=== PATIENT | male | born 1985 | race Caucasian/White ===

== ENCOUNTER 2019-07-27 14:42 | Emergency (ER) | payer MEDICAID, OTHER ==
[~2019-07-27] VITALS: Ht 180.3 cm; Wt 108.9 kg
[~2019-07-27 14:42] MED LIST: AMPH20CA7 PO; DULO30CA2 PO
[2019-07-27 14:57] VITALS: BP 146/102
--- NOTE | 2019-07-27 16:05 | PCM.EKG ---
[facility] Test Date: 2019-07-27 Test Time: 16:01:06 Pat Name: OJ LEVINE Department: Room: Gender: M Behavior Specialist: KARLOS : 1985 Requested By: AYUSH THURMAN Order Number: [id number] Reading MD: Measurements Intervals [place] Rate: 90 P: 67 MI: 147 QRS: 88 QRSD: 117 T: 37 QT: 369 QTc: 452 Interpretive Statements Sinus rhythm Nonspecific intraventricular conduction delay Abnormal inferior Q waves No previous ECG available for comparison Please click the below link to view image of tracing.
[2019-07-27 16:07] LABS: BASOPHIL % 0.4 % (0.0-0.2); EOSINOPHIL # 0.3 10^3/uL (0.0-0.2); LYMPHOCYTES # 1.1 10^3/uL (1.0-4.8); LYMPHOCYTES % 20.8 % (24.0-44.0); MEAN CORP HGB 32.4 pg (26-34); MONOCYTES # 0.5 10^3/uL (0.3-0.8); NEUTROPHIL # 3.4 10^3/uL (1.8-7.7); NEUTROPHILS % 63.2 % (41.0-85.0); RED CELL DISTRIBUTION WIDTH 13.1 % (11.5-14.5)
[2019-07-27 16:28] LABS: ALANINE AMINOTRANSFERASE(ML) 135 U/L (12-78); ALKALINE PHOSPHATASE 64 U/L (50-136); ASPARTATE AMINO TRANSFERASE 60 U/L (0-35); CALCIUM 9.2 mg/dL (8.4-10.5); CARBON DIOXIDE 24.9 mmol/L (20.0-32); GLUCOSE 119 mg/dL (70-110)
[2019-07-27 16:30] VITALS: BP 158/97
[2019-07-27 17:00] VITALS: BP 134/94
[2019-07-27 17:07] LABS: BILIRUBIN,URINE NEGATIVE (NEGATIVE); UROBILINOGEN,URINE NORMAL (NEGATIVE)
[2019-07-27 17:09] LABS: APPEARANCE,URINE CLEAR (CLEAR); UA COLOR YELLOW (YELLOW)
--- NOTE | 2019-07-27 17:18 | DIREP ---
PROCEDURE:CT CERVICAL SPINE WITHOUT CONTRAST TECHNIQUE:Axial cuts were obtained through the cervical spine. The images were viewed at bone and soft tissue settings. Sagittal and coronal reconstructions are provided. COMPARISON:None. INDICATIONS:fall from 20 feet, LLE WEAKNESS, NUMBNESS L1,2 TENDERNESS, SACRAL TENDERNES FINDINGS: ALIGNMENT:Normal. VERTEBRAE:Normal. PARASPINAL AREA:Normal. OTHER:No additional findings. CERVICAL DISC LEVELS Minimal C4-5 ventral spondylosis. CONCLUSION: 1. No acute findings Dictated by: Christopher Umaña MD on 07/27/2019 at 05:06 PM
--- NOTE | 2019-07-27 17:27 | DIREP ---
PROCEDURE:CT CHEST ABDOMEN PELVIS W/CONTRAST COMPARISON:None. INDICATIONS:FALL FROM 20 FEET, LLE WEAKNESS TECHNIQUE:Axial images were obtained through the chest, abdomen and pelvis during the IV administration of nonionic contrast. No oral contrast was administered. Sagittal and coronal reconstructions were performed from source images. FINDINGS: LUNGS:Normal. No visible pulmonary disease. PLEURA:Normal. No mass or effusion. CARDIAC:Normal. No enlargement, pericardial thickening, or significant calcification. MEDIASTINUM/ELIZA:Calcified left suprahilar lymph nodes CHEST WALL:Normal. No mass or axillary adenopathy. LIVER:Diffusely diminished hepatic attenuation consistent with hepatic steatosis. There is focal fatty sparing adjacent to the gallbladder. BILIARY:Normal. No visible dilatation or calcification. PANCREAS:Normal. No lesion, fluid collection, ductal dilatation, or atrophy. SPLEEN:Normal. No enlargement or focal lesion. ADRENALS:Normal. No mass or enlargement. URINARY TRACT:Normal. No focal lesions or hydronephrosis. AORTA/VASCULAR:Normal. No aneurysm. RETROPERITONEUM:Normal. No mass or adenopathy. BOWEL/MESENTERY:Normal. There is no intestinal obstruction, free fluid, free air or mesenteric inflammatory changes. ABDOMINAL WALL:Normal. No mass or hernia. PELVIC ORGANS:Normal. No visible mass. Pelvic organs appropriate for patient age. BONES:Normal for age. No bony lesion or acute fracture. No visible spinal or pelvic deformities. OTHER:Negative. CONCLUSION: 1. Moderately severe hepatic steatosis. 2. Calcified left suprahilar lymph nodes consistent with the sequela of prior granulomatous disease. 3. No evidence for traumatic injury to the chest, abdomen, or pelvis. Dictated by: Christopher Umaña MD on 07/27/2019 at 05:21 PM
--- NOTE | 2019-07-27 17:40 | ER.PDOC ---
General Chief Complaint: Trauma Stated Complaint: FELL OFF LADDER Time seen by MD: 16:00 Source: patient Exam Limitations: no limitations History of Present Illness Where: home Severity: moderate Injuries/Pain Location: back Context: Lost Balance Loss of Consciousness: No Loss of Consciousness Allergies: Coded Allergies: No Known Allergies (Unverified , 12/23/14) MEDS Reported Medications Duloxetine Hcl (CYMBALTA) 30 Mg Capsule.dr, 1 CAP PO DAILY, #30 CAP 2 Refills 08/01/15 Amphet Asp/Amphet/D-Amphet (ADDERALL XR 20 MG CAPSULE) 20 Mg Cap.er.24h, 1 CAP PO DAILY, #30 CAP 08/01/15 Past Medical History Medical History: high cholesterol Surgical History: no surgical history Social History Alcohol Use: occassionally Drug Use: none Review of Systems All Other Systems: Reviewed and Negative Physical Exam General Appearance: No Apparent Distress, WD/WN Head: No Evidence of Injury Eyes: bilateral eye normal inspection Ears, Nose, Mouth, Throat: Hearing Grossly Normal, No Evidence of ENT Injury, No Dental Injury Neck: Non-Tender, Normal Alignment, Nexus criteria neg, Normal Inspection Cardiovascular/Respiratory: Regular Rate, Rhythm, No M/R/G, Normal Peripheral Pulses, No JVD, Normal Breath Sounds, No Respiratory Distress Back: Muscle Spasm Extremities: Other (weak lle, below knee) Nav Coma Score [place] Total: 15 Results/Orders Results/Orders Orders - AYUSH THURMAN MD Cbc With Auto Diff (07/27/19 15:54) Comprehensive Metabolic Panel (07/27/19 15:54) Creatine Kinase (07/27/19 15:54) PT (07/27/19 15:54) Partial Thromboplastin Time. (07/27/19 15:54) Urinalysis (07/27/19 15:54) Troponin I (07/27/19 15:54) Ekg-Routine (07/27/19 15:54) Ct Cervical Spine (07/27/19 15:54) Ct Abd/Pel With Iv Contrast (07/27/19 15:54) Ct Chest W Iv Contrast (07/27/19 15:54) Drug Screen Medical(Ml) (07/27/19 15:54) Alcohol(Ml) (07/27/19 15:54) Saline Lock (07/27/19 15:54) Opiate Confirmation Ur (07/27/19 17:00) Vital Signs Date Time Temp Pulse Resp B/P (MAP) Pulse Ox O2 Delivery O2 Flow Rate FiO2 07/27/19 17:00 100 18 134/94 (107) 07/27/19 16:30 99 18 158/97 (117) 99 07/27/19 15:07 18 07/27/19 14:57 98.4 104 18 146/102 (117) 99 Room Air 07/27/19 14:57 98.4 104 18 99 07/27/19 14:57 98.4 104 18 Laboratory Tests Test 07/27/19 16:03 07/27/19 17:00 White Blood Count 5.4 10^3/uL (4.5-11.0) Red Blood Count 4.94 10^6/uL (4.50-5.90) Hemoglobin 16.0 g/dL (13.9-16.3) Hematocrit 44.8 % (37.0-53.0) Mean Corpuscular Volume 90.7 fL (78-100) Mean Corpuscular Hemoglobin 32.4 pg (26-34) Mean Corpuscular Hemoglobin Concent 35.7 g/dL (33-37) Red Cell Distribution Width 13.1 % (11.5-14.5) Platelet Count 170 10^3/uL (150-400) Mean Platelet Volume 10.4 fL (7.8-11.0) Neutrophils (%) (Auto) 63.2 % (41.0-85.0) Lymphocytes (%) (Auto) 20.8 % (24.0-44.0) L Monocytes (%) (Auto) 10.0 % (5.0-12.0) Neutrophils # (Auto) 3.4 10^3/uL (1.8-7.7) Lymphocytes # (Auto) 1.1 10^3/uL (1.0-4.8) Monocytes # (Auto) 0.5 10^3/uL (0.3-0.8) Absolute Immature Granulocyte (auto 0.03 10^3 u/L (0-2) Immature Granulocytes % 0.60 % (0.00-0.50) H Eosinophils % 5.0 % (0.0-5.0) Basophils % 0.4 % (0.0-0.2) H Basophils # 0.0 10^3/uL (0.0-0.1) Eosinophil Count 0.3 10^3/uL (0.0-0.2) H Prothrombin Time 10.6 SEC (9.4-11.5) Prothrombin Time INR (Non-Therap) 1.0 Activated Partial Thromboplast Time 24.8 SEC (24.67-30.72) Sodium Level 140 mmol/L (132-145) Potassium Level 3.4 mmol/L (3.6-5.2) L Chloride Level 103.0 mmol/L (96-109) Carbon Dioxide Level 24.9 mmol/L (20.0-32) Anion Gap 15.5 Blood Urea Nitrogen 14 mg/dL (7-18) Creatinine 1.19 mg/dL (0.59-1.40) Estimated GFR () 85.2 (>/=60) BUN/Creatinine Ratio 11.0 Glucose Level 119 mg/dL (70-110) H Calcium Level 9.2 mg/dL (8.4-10.5) Total Bilirubin 0.8 mg/dL (0.2-1.0) Aspartate Amino Transferase (AST) 60 U/L (0-35) H Alanine Aminotransferase (ALT) 135 U/L (12-78) H Alkaline Phosphatase 64 U/L (50-136) Total Creatine Kinase 86 U/L (39-308) Troponin I < 0.02 ng/mL (0.00-0.05) Total Protein 7.8 g/dL (6.4-8.2) Albumin 4.2 g/dL (3.4-5.0) Globulin 3.6 Serum Alcohol < 3 mg/dL (0-50) Urine Collection Type VOID Urine Color YELLOW (YELLOW) Urine Appearance CLEAR (CLEAR) Urine Bilirubin NEGATIVE MG/DL (NEGATIVE) Urine Ketones NEGATIVE (NEGATIVE) Urine Specific [place] 1.020 (1.005-1.035) Urine pH 5 (5.0-6.0) Urine Protein NEGATIVE (NEGATIVE) Urine Urobilinogen NORMAL (NEGATIVE) Urine Nitrate NEGATIVE (NEGATAIVE) Urine Leukocyte Esterase NEGATIVE (NEGATIVE) Urine Blood NEGATIVE (NEGATIVE) Urine Glucose NORMAL (NEGATIVE) Urine Opiates, Qualitative POSITIVE ng/mL (CUT-OFF:300) Urine Methadone, Qualitative NEGATIVE ng/mL (CUT-OFF:300) Urine Amphetamine Qualitative NEGATIVE ng/mL (CUTOFF:1000) Urine Barbiturates, Qualitative NEGATIVE ng/mL (CUT-OFF:200) Urine Phencyclidine Screen NEGATIVE ng/mL (CUT-OFF:25) Urine MDMA (Ecstasy), Qualitative POSITIVE ng/mL (CUT-OFF:300) Urine Benzodiazepines Screen NEGATIVE ng/mL (CUT-OFF:200) Urine Cocaine Qualitative NEGATIVE ng/mL (CUT-OFF:300) Ur Tetrahydrocannabinol (THC) Scrn NEGATIVE ng/mL (CUT-OFF:50) Departure Time of Disposition: 18:00 Disposition: 05 DISCH/XFER OTHER Impression: Primary Impression: Lumbar radiculopathy, acute Condition: Stable Referrals: PCP,UNKNOWN (PCP) PRIMARY CARE PROVIDER Duration or Time Spent with Pa: 30 M AYUSH THURMAN MD Jul 27, 2019 17:40
--- NOTE | 2019-07-27 18:30 | NUR ---
REPORT REPORT CALLED TO CHARGE NURSE AT [facility]. PATIENT TRANSFER VIA POV
== END 2019-07-27 18:25 ==
LOC: ER 14:42
DX: M54.5 Low back pain (principal); R79.1 Abnormal coagulation profile
CPT/HCPCS: 36415; 71260; 72125; 74177; 80053; 80307; 80320; 81002; 82550; 84484; 85025; 85610; 85730; 93005; 99285; Q9965